=== PATIENT | male | born 1975 | race Caucasian/White ===

== ENCOUNTER 2018-05-12 12:43 | Emergency (ER) | payer OTHER ==
[~2018-05-12] VITALS: Ht 180.3 cm; Wt 105.2 kg
[~2018-05-12 12:43] MED LIST: AVELOX ABC PAC400 MG
[2018-05-12] MEDS ORDERED: XANAX1 MG (12:56)
== END 2018-05-12 16:50 | disposition home or self-care (01) ==
LOC: ER 12:43
DX: M79.661 Pain in right lower leg (principal)